=== PATIENT | male | born 1995 | race Two or more races ===

== ENCOUNTER 2023-04-28 11:46 | Emergency (ER) | payer MEDICAID ==
[~2023-04-28] VITALS: Ht 170.2 cm; Wt 82.0 kg
[2023-04-28 11:52] VITALS: BP 151/84
== END 2023-04-28 12:14 | disposition home or self-care (01) ==
LOC: ER 11:46
DX: F29 Unspecified psychosis not due to a substance or known physiological condition (principal)
CPT/HCPCS: 99283

== ENCOUNTER 2024-05-11 01:13 | Emergency (ER) | payer MEDICAID ==
[~2024-05-11] VITALS: Ht 167.6 cm; Wt 73.0 kg
[2024-05-11] MEDS ORDERED: LORAZEPAM 1MG TABLET PO ONE (01:30)
[2024-05-11] MEDS: HALOPERIDOL LACTATE 5MG/ML VIAL IM ONE (01:57)
[2024-05-11] MEDS: LORAZEPAM 2MG/ML INJ IM ONE ×2 (01:57→20:51)
[2024-05-11] MEDS: DIPHENHYDRAMINE 50MG/ML VIAL IM ONE (01:57)
[2024-05-11 02:13] LABS: HEMOGLOBIN. 11.4 g/dL (14.0-18.0); MEAN CORPUSCULAR HEMOGLOBIN 23.5 pg (28.0-32.0); MEAN CORPUSCULAR HGB CONC 31.6 g/dL (31.0-37.0); MEAN CORPUSCULAR VOLUME 74.5 fL (80.0-94.0); MEAN PLATELET VOLUME 7.9 fl (7.4-10.4); PLATELET 371 x1000/uL (130-400); RED BLOOD CELL COUNT 4.83 mill/uL (4.7-6.1); RED CELL DISTRIBUTION WIDTH 19.2 % (11.6-14.6); WHITE BLOOD COUNT 10.5 x1000/uL (4.5-11.0)
[2024-05-11] MEDS: SODIUM CHLORIDE 0.9% 1,000 ML IV ONE (02:15)
[2024-05-11 02:16] LABS: DIFFERENTIAL COMMENT 1
[2024-05-11 02:20] LABS: CARBON DIOXIDE 20 mEq/L (21-32); CHLORIDE 110 mEq/L (98-107); POTASSIUM 3.3 mEq/L (3.5-5.1); SODIUM 141 mEq/L (136-145)
[2024-05-11 02:21] LABS: CALCIUM 9.4 mg/dL (8.7-10.4)
[2024-05-11 02:25] LABS: CREATININE 0.8 mg/dL (0.6-1.3); GLUCOSE 109 mg/dL (70-105)
[2024-05-11 02:26] LABS: ETHANOL BLOOD < 10 mg/dL (<10); UREA NITROGEN BLOOD 7 mg/dL (9-23)
[2024-05-11 02:27] LABS: ACETAMINOPHEN < 2 ug/mL (10-30); ALANINE AMINOTRANSFERASE 120 IU/L (10-49); ALBUMIN 4.7 g/dL (3.2-4.8); ASPARTATE AMINOTRANSFERASE 71 IU/L (<34); PROTEIN TOTAL 7.9 g/dL (6.0-8.3)
[2024-05-11 02:28] LABS: AMMONIA 28 uMol/L (<32); BILIRUBIN DIRECT 0.7 mg/dL (<=3.0); BILIRUBIN TOTAL 1.6 mg/dL (0.1-1.0); CREATINE KINASE 246 IU/L (46-171)
[2024-05-11 02:30] VITALS: O2SAT 97
[2024-05-11 02:32] LABS: ATYPICAL LYMPHOCYTES 4; NUCLEATED RED BLOOD CELLS 16 /100 WBC
[2024-05-11 02:33] LABS: MICROCYTOSIS 1+; OVALOCYTES 1+; PLATELET ESTIMATE NORMAL; TARGET CELLS 4+; TEAR DROP CELLS 2+
[2024-05-11 02:35] LABS: GIANT PLATELETS 1+; SICKLE CELLS 1+
[2024-05-11 02:42] LABS: CLARITY URINE CLEAR (CLEAR); COLOR URINE YELLOW (YELLOW); GLUCOSE URINE NEGATIVE (NEGATIVE); KETONES URINE NEGATIVE (NEGATIVE); LEUKOCYTE ESTERASE URINE NEGATIVE (NEGATIVE); NITRITE URINE NEGATIVE (NEGATIVE); OCCULT BLOOD URINE NEGATIVE (NEGATIVE); PROTEIN URINE 1+ (NEGATIVE); SPECIFIC GRAVITY URINE 1.013 (1.005-1.030)
[2024-05-11 02:47] LABS: *AMPHETAMINES SCREEN URINE PRESUMPTIVE POSITIVE (NEGATIVE); *BARBITURATES SCREEN URINE NEGATIVE (NEGATIVE); *BENZODIAZEPINES SCREEN URINE NEGATIVE (NEGATIVE); CANNABINOID URINE SCREEN NEGATIVE (NEGATIVE); METHADONE URINE SCREEN NEGATIVE (NEGATIVE); OPIATES URINE SCREEN NEGATIVE (NEGATIVE); PHENCYCLIDINE URINE SCREEN NEGATIVE (NEGATIVE)
[2024-05-11 02:48] LABS: ECSTASY MDMA SCREEN URINE NEGATIVE (NEGATIVE)
[2024-05-11 02:49] LABS: *COCAINE SCREEN URINE NEGATIVE (NEGATIVE)
[2024-05-11 03:48] LABS: BACTERIA URINE NONE SEEN; RBC URINE 0-2 /hpf (0-2); SQUAMOUS EPITHELIAL CELL URINE RARE /lpf (RARE/1+); WBC URINE 0-2 /hpf (0-2)
[2024-05-11] MEDS: ARIPIPRAZOLE 5MG TABLET PO SCH (15:15)
[2024-05-11] MEDS: MELATONIN 3MG TABLET PO SCH (20:30)
[2024-05-11 22:53] VITALS: BP 106/63; PULSE 77; RESP 12; TEMP 97.3
== END 2024-05-11 23:10 | disposition short-term general hospital (02) ==
LOC: ER 01:13
DX: R45.850 Homicidal ideations (principal); F15.10 Other stimulant abuse, uncomplicated; D57.1 Sickle-cell disease without crisis; D56.1 Beta thalassemia; F14.10 Cocaine abuse, uncomplicated; F12.10 Cannabis abuse, uncomplicated; F17.210 Nicotine dependence, cigarettes, uncomplicated; Z20.822 Contact with and (suspected) exposure to COVID-19
CPT/HCPCS: 80076; 80305; 80048; 81003; 80307; 80329; 80320; 82140; 82550; 83690; 85025; 36415; 96372; 99291; 87426; J1200; J1630; J2060; J7030; G0480